=== PATIENT | male | born 1985 | race Caucasian/White ===

== ENCOUNTER → 2020-03-28 09:49 | Outpatient (CLI) | payer OTHER, SELFPAY ==
--- NOTE | ~2020-03-28 | CT_ITS ---
EXAMINATION: CT sinus wo con DATE: 03/28/2020 10:06 INDICATION: Acute recurrent pansinusitis TECHNIQUE: Computed tomography (CT) of the paranasal sinuses was performed without intravenous contra st. The dose-length product (DLP) was 278.24 mGy-cm. Iterative reconstruction was used. COMPARISON: None FINDINGS: There is normal development and pneumatization of the paranasal sinuses. There is trace muc osal thickening in the inferior aspects of the maxillary sinuses. The frontal, sphenoid, and ethmoid sinuses are clear. The bilateral ostiomeatal complexes are patent. Visualized soft tissues are unrema rkable. IMPRESSION: 1. Trace maxillary sinus disease. Reviewed, dictated and finalized at location A.
== END ==
PROVIDERS: Visit Provider Otolaryngology
DX: J01.41 Acute recurrent pansinusitis (principal)
CPT/HCPCS: 70486

== ENCOUNTER → 2021-07-10 07:54 | Outpatient (CLI) | payer OTHER, SELFPAY ==
--- NOTE | ~2021-07-10 | US_ITS ---
US abdomen limited INDICATION: Elevated bilirubin. PROCEDURE: Realtime right upper abdominal ultrasound. COMPARISON: No prior studies for comparison. FINDINGS: The pancreas is normal without focal mass or pancreatic ductal dilation. In the liver ther e is an ill-defined area of increased echogenicity with shadowing, not well defined. There is normal directional flow in the portal vein. Gallbladder is surgically absent. Common bile duct measures 3 mm. No sonographic Abdalla's sign. IMPRESSION: 1: Within the liver there is an ill-defined area of increased echogenicity with shadowing, not well d efined. Recommend correlation with contrast-enhanced CT abdomen for further evaluation and to exclude underlying mass. Reviewed, dictated and finalized at location B. E SPECIALIST IMPRESSION: 1: Within the liver there is an ill-defined area of increased echogenicity with shadowing, not well defined. Recommend correlation with contrast-enhanced CT a bdomen for further evaluation and to exclude underlying mass.
== END ==
PROVIDERS: PCP Emergency Medicine; Visit Provider Nurse Practitioner Family
DX: E80.6 Other disorders of bilirubin metabolism (principal)
CPT/HCPCS: 76705

== ENCOUNTER 2021-07-31 07:10 | Outpatient (CLI) | payer OTHER, SELFPAY ==
--- NOTE | ~2021-07-31 | CT_ITS ---
EXAMINATION: CT abdomen pelvis wo/w con DATE: 07/31/2021 07:54 INDICATION: There is increased echogenicity with shadowing within the liver on 07/10/2021 Limited abdominal ultras ound examination TECHNIQUE: Computed tomography (CT) of the abdomen and pelvis was performed without and subsequently with immediate and delayed postcontrast images after intravenous injection of 100 cc Omnipaque 350 in travenous contrast material. Automated exposure control and iterative reconstruction technique were e mployed. Exam dose: 719.52 mGy-cm total exam DLP. COMPARISON: None. FINDINGS: The lung bases are clear. Normal heart size. No pericardial or pleural effusion. Very small sliding hiatal hernia. There is an irregular heterogeneous lesion within the medial segment of the left hepatic lobe, measur ing up to approximately 4 x 6 cm dimension, with evidence of internal vascularity on the postcontrast image. There are some lower attenuation areas which may indicate some necrosis. Differential diagnos is includes unlikely focal nodular hyperplasia and hepatic adenoma, both of these are more common in females, especially hepatic adenoma, but observed rarely in men particularly related to androgenic st eroids; additional considerations include hepatocellular carcinoma, particularly fibrolamellar hepato cellular carcinoma, solitary hepatic metastasis, in addition to hemangioendothelioma sarcoma and prim marilynn hepatic lymphoma. The lesion does not demonstrate the peripheral interrupted puddling of contrast material expected with hepatic hemangioma. CT-guided percutaneous needle biopsy is recommended. No other hepatic space-occupying mass lesion is evident. No bile duct dilatation. Status post cholecystectomy. Normal splenic size. No pancreatic mass lesion, calcification or ductal dilatation. Normal morphology of the adrenal glands. No renal mass lesion is evident. There is persistent lobation versus scarring of the kidneys, m ore prominent on the left. No renal space-occupying mass lesion or urinary tract calculus or hydroure teronephrosis is detected. Mild prostate enlargement. There is moderate diffuse thickening of the urinary bladder wall. Normal appendix. There is suggestion of an approximately 3.2 cm mass within the cecum, raising concern for possible ma lignant cecal carcinoma. No bowel obstruction or intraperitoneal free air is evident. There is normal caliber of the abdominal aorta. No intraperitoneal or retroperitoneal or pelvic mass lesion or adenopathy or ascites is noted otherwise. IMPRESSION: 3.1 cm cecal mass is suggested, raising suspicion of malignant cecal carcinoma 4 x 6 cm irregular hepatic mass with internal vascularity, most suspicious for hepatic metastasis; le ss likely considerations in the differential diagnosis for the liver mass are given above Consider colonoscopy and CT-guided periappendiceal biopsy of the medial segment left hepatic mass Dr. Casarez telephoned the report on 07/31/2021 at 1126 hours to Medical Assistants' voicemail at [phone]. Reviewed, dictated and finalized at Location A. Reviewed, dictated and finalized at location B. GETTER IMPRESSION: 3.1 cm cecal mass is suggested, raising suspicion of malignant cec al carcinoma 4 x 6 cm irregular hepatic mass with internal vascularity, most suspicious for hepatic metastasis; less likely considerations in the differential diagnosis fo r the liver mass are given above Consider colonoscopy and CT-guided periappendiceal biopsy of the medial segment left hepatic mass Dr. Casarez telephoned the report on 07/31/2021 at 1126 hours to Sprayer Operator s' voicemail at [phone].
== END 2021-07-31 07:11 | disposition home or self-care (01) ==
LOC: ANHIMG 07:11
PROVIDERS: PCP Emergency Medicine; Visit Provider Nurse Practitioner Family
DX: E80.6 Other disorders of bilirubin metabolism (principal); R93.89 Abnormal findings on diagnostic imaging of other specified body structures
CPT/HCPCS: 74178; Q9967

== ENCOUNTER 2021-08-15 02:23 | Day surgery (SDC) | payer OTHER, SELFPAY ==
[2021-07-28 15:13] VITALS: BMI 25.1
--- NOTE | 2021-08-14 14:45 | WPDANESEPPF ---
Anes - Initial Pre Proc Eval Procedure: Operation Date: 08/15/21 09:45 Proposed Procedures p Colonoscopy - Marquise Patel MD Date/Time: 08/14/21 14:45 Surgeon: Marquise Patel MD Pre Op Diagnosis: colon mass, abnormal CAT scan Patient Data Age: 35 Gender: M Height: 1.75 m Weight: 77.27 kg Allergies Allergy/AdvReac Type Severity Reaction Status Date / Time No Known Allergies Allergy Verified 08/15/21 08:51 Home Medications Medication Instructions Recorded Confirmed Type citalopram 40 mg tablet 40 mg PO DAILY 06/12/21 08/15/21 History rosuvastatin 10 mg tablet 10 mg PO DAILY 06/12/21 08/15/21 History Patient hx anesthesia problems: none Family hx anesthesia problems: none Results Review: All pre-operative results and documents have been reviewed as part of the pre-operative evaluation. [facility] Past Medical History Medical History (Updated 08/14/21 @ 14:45 by Shon Mac DO) Anxiety HLD (hyperlipidemia) Hyperbilirubinemia IBS (irritable bowel syndrome) Liver mass Surgical History Surgical History History of cholecystectomy Social History Social History Smoking status: Never smoker Second hand tobacco smoke exposure: No Alcohol intake: never Substance use: never Living arrangements: with family Gender identity (if verbalized by the patient): Male Spiritual care concerns: No Agree to blood products: Yes Anes - Eval Final PreProcedure Day of Procedure 08/14/21 14:45 Patient weight: overweight Heart: regular rate and rhythm Lungs: clear to auscultation and normal air movement Airway: Mallampati scale class II Neurological: alert and oriented Last oral intake: >/= 8 hours ASA classification: II Emergent: no Anesthetic plan: proceed Anesthesia type and monitoring: general GIVS and standard monitoring Results Review: All pre-operative results and documents have been reviewed as part of the pre-operative evaluation. Informed Consent: The patient's anesthetic plan and its attendant risks and benefits were discussed with the patient/family/POA. Questions were solicited and answers provided to the satisfaction of the patient/family/POA.
[2021-08-15 08:53] VITALS: BP 113/63; PULSE 69; RESP 18; TEMP 36.1; O2SAT 99; BMI 25.3
[2021-08-15] MEDS: LACTATED RINGERS 1,000 ML 150 ML IV CONT (08:55)
--- NOTE | 2021-08-15 09:21 | WPDHPUPDATE1 ---
History and Physical Update Update Date/Time: 08/15/21 09:21 History and Physical has been reviewed, including an updated exam of the patient. There are NO changes in the patient's condition. Risks, benefits, and alternatives have been discussed and questions answered. Patient agrees to proceed with procedure.
[2021-08-15 09:42] VITALS: BP 106/85; PULSE 63; RESP 13; O2SAT 98
[2021-08-15 09:52] VITALS: BP 107/77; PULSE 62; RESP 17; O2SAT 100
[2021-08-15 10:02] VITALS: BP 113/79; PULSE 63; RESP 19; O2SAT 100
== END 2021-08-15 10:10 | disposition home or self-care (01) ==
PROVIDERS: PCP Emergency Medicine; Visit Provider Internal Medicine Gastroenterology
PROC: 0DJD8ZZ Inspection of Lower Intestinal Tract, Via Natural or Artificial Opening Endoscopic (ICD-10-PCS; CPT 45378; principal; 2021-08-15 09:45)
DX: D12.4 Benign neoplasm of descending colon (principal); E78.5 Hyperlipidemia, unspecified; E80.6 Other disorders of bilirubin metabolism; Z90.49 Acquired absence of other specified parts of digestive tract; E78.00 Pure hypercholesterolemia, unspecified; K58.9 Irritable bowel syndrome, unspecified; F41.9 Anxiety disorder, unspecified; E80.4 Gilbert syndrome; R16.0 Hepatomegaly, not elsewhere classified
CPT/HCPCS: 45385; 88305; J2704; J7120

== ENCOUNTER 2021-08-29 04:00 | Outpatient (CLI) | payer OTHER, SELFPAY ==
[2021-08-27 09:53] VITALS: BMI 25.1
--- NOTE | 2021-08-27 10:04 | PC.NURSE ---
Report to the Outpatient Waiting Room, entrance under the green pavilion located off [facility], at time 0900 on date 08/29/21. OR Time: 1100. - You will be asked a series of questions to screen for COVID 19 for your protection. - A mask is required within the hospital. - No visitors are allowed at this time. Patient visitors will be guided where to wait when not with patient. Preoperative COVID Testing Requirements: No COVID Test needed if: (proof is required; if not received patient will have Rapid Test prior to entry) - Patient has received COVID Vaccine at least 14 days prior to procedure date or - Patient has positive COVID test result within last 90 days of surgery date. COVID Test needed if above criteria is not met - No food/DRINK FOR 6 HOURS PRIOR TO PROCEDURE Take the following medications with a SIP of water the morning of surgery: NONE Medications to discontinue per physician: N/A Date to take last dose: N/A Please no make-up, nail djiboutian, hairspray, perfume, deodorant, or body powder the day of surgery. No jewelry (including any body piercings) or valuables the day of surgery, leave them at home. Please take a shower or bath the night before, or the morning of, surgery with an antibacterial soap. Wear comfortable, loose fitting clothing. - Jewelry must be removed prior to entering the operating room. Rings and piercings that are not removed may be cut off. - The hospital will not accept responsibility for valuables. - Please leave all valuables, including medications, at home the day of surgery. If you are going home after surgery, a licensed shuttle driver must drive you home. - NO public transportation without another adult. - We recommend that an adult stay with you for 24 hours following discharge. - We also recommend that you do not drive, make important decision, drink alcoholic beverages, or take any drugs that were not prescribed by your health care provider for at least 24 hours after your discharge time. Follow any additional instructions given to you from your surgeon. Telephone instructions given to JUNG BOTELLO and asked if any additional questions and then verbalized understanding. Patient advised to call surgeon office or pre surgery nurse liaison [phone] if any additional questions.
[2021-08-29] VITALS (9 sets, daily range): BP systolic 106–121; BP diastolic 67–78; PULSE 56–64; RESP 18–20; TEMP 36.6; O2SAT 98
--- NOTE | ~2021-08-29 | CT_ITS ---
EXAMINATION: CT biopsy abdomen percutaneous DATE: 08/29/2021 12:07 INDICATION: 4 x 6 cm irregular hepatic mass TECHNIQUE: The procedure including the risks and benefits was discussed with the patient. Risks discu ssed included bleeding and infection. The patient understood the risks and agreed to proceed. The sk in overlying the liver was prepped and draped in usual sterile fashion. Anesthetic was administered with 1% lidocaine subcutaneously. A 16 gauge outer needle was advanced under CT guidance to the lesi on of interest. An 18 gauge core biopsy needle was then advanced into the lesion. 3 core biopsy speci mens were obtained. The outer needle was removed and the entry site was cleaned and dressed. There w ere no immediate complications. The mAs was manually decreased to limit radiation exposure. The dose- length product was 137.87 mGy-cm. FINDINGS: CT images demonstrate the outer needle tip within the low attenuation mass in segment IVb o f the liver. IMPRESSION: 1. Successful CT-guided biopsy of an approximately 6 x 3 cm lower attenuation region of concern at se gment IVb of the liver. Reviewed, dictated and finalized at location A. R GENERATION EQUIPMENT REPAIRER IMPRESSION: 1. Successful CT-guided biopsy of an approximately 6 x 3 cm lower attenuation r egion of concern at segment IVb of the liver.
[2021-08-29 10:08] LABS: Mean Platelet Volume 9.5 fl (7.4-10.4); Platelet Count Result 198 k/mm3 (150-375)
[2021-08-29 10:14] LABS: INR 0.9; Prothrombin Time 12.5 Seconds (11.1-14.7)
== END 2021-08-29 15:26 | disposition home or self-care (01) ==
PROVIDERS: PCP Emergency Medicine; Visit Provider Radiology Diagnostic Radiology
PROC: BW20ZZZ Computerized Tomography (CT Scan) of Abdomen (ICD-10-PCS; CPT 77012; principal; 2021-08-29 11:00)
DX: R16.0 Hepatomegaly, not elsewhere classified (principal)
CPT/HCPCS: 36415; 49180; 77012; 85049; 85610; 88307; 88312; 88313; 88342

== ENCOUNTER 2022-02-27 10:04 | Outpatient (CLI) | payer OTHER, SELFPAY ==
[2022-02-27 19:08] LABS: Basophils Percent Auto 0.4 % (0.2-1.2); Eosinophils Absolute Auto 0.2 K/mm3 (0-0.3); Eosinophils Percent Auto 4.1 % (0-4.4); Hematocrit 40.9 % (42.0-52.0); Hemoglobin 14.3 g/dL (14.0-18.0); Immature Granulocyte Absolute 0.02 K/mm3 (0.00-0.031); Immature Granulocyte Percent A 0.4 % (0-0.5); Lymphocytes Percent Auto 27.5 % (18.3-44.2); Mean Corpuscular Hemoglobin 29.1 pg (26-34); Mean Corpuscular Volume 83.3 fl (80-100); Mean Platelet Volume 10.1 fl (7.4-10.4); Monocytes Absolute Auto 0.3 K/mm3 (0.1-0.6); Monocytes Percent Auto 6.1 % (2.6-8.5); Neutrophils Absolute Auto 3.1 K/mm3 (1.3-6.7); Neutrophils Percent Auto 61.5 % (45.5-73.1); Platelet Count Result 215 k/mm3 (150-375); Red Blood Count 4.91 M/mm3 (4.6-6.20); Red Cell Distribution Width 12.1 % (11.5-14.5); White Blood Count 5.1 K/mm3 (4.5-10.0)
[2022-02-27 20:41] LABS: Alanine Aminotransferase 45 U/L (6-50); Albumin Level 4.8 g/dL (3.5-5.1); Alkaline Phosphatase 82 U/L (38-126); Anion Gap 6 mmol/L (8-16); Aspartate Amino Transferase 52 U/L (17-59); Bilirubin,Total 2.7 mg/dL (0.2-1.3); Blood Urea Nitrogen 13 mg/dL (9-20); Carbon Dioxide 27 mmol/L (22-30); Chloride 107 mmol/L (98-107); Cholesterol 204 mg/dL (0-200); Estimated Glomerular Filt Rate > 60; Glucose 75 mg/dL (65-110); HDL Direct 48 mg/dL; Sodium 140 mmol/L (137-145); Triglycerides 225 mg/dL (<150); Uric Acid 6.1 mg/dL (3.5-8.5)
[2022-02-27 20:52] LABS: LDL Cholesterol Direct 63 mg/dL
[2022-02-27 21:36] LABS: Vitamin D 25 Hydroxy 32.7 ng/mL
[2022-02-27 21:50] LABS: Thyroid Stimulating Hormone Reflex 0.534 uIU/mL (0.465-4.68)
== END 2022-02-27 10:05 | disposition home or self-care (01) ==
LOC: ANHGOSHLAB 10:07
PROVIDERS: PCP Nurse Practitioner; Visit Provider Nurse Practitioner
DX: E78.5 Hyperlipidemia, unspecified (principal); E55.9 Vitamin D deficiency, unspecified; R53.83 Other fatigue; M79.674 Pain in right toe(s)
CPT/HCPCS: 36415; 80053; 80061; 82306; 84443; 84550; 85025

== ENCOUNTER → 2022-04-03 09:25 | Outpatient (CLI) | payer OTHER, SELFPAY ==
--- NOTE | ~2022-04-03 | XR_ITS ---
EXAMINATION: XR foot RT min 3V DATE: 04/03/2022 09:36 INDICATION: Right foot pain TECHNIQUE: Dorsoplantar, lateral, and 2 oblique views of the right foot were obtained. COMPARISON: None. FINDINGS: There is no fracture, dislocation, or subluxation. The bones, soft tissues, and joint space s are normal. IMPRESSION: 1. No acute osseous abnormality. Reviewed, dictated and finalized at location B.
== END ==
PROVIDERS: PCP Nurse Practitioner; Visit Provider Nurse Practitioner
DX: M79.671 Pain in right foot (principal)
CPT/HCPCS: 73630

== ENCOUNTER 2022-05-07 10:53 | Outpatient (CLI) | payer OTHER, SELFPAY ==
[2022-05-07 12:11] LABS: Alanine Aminotransferase 53 U/L (6-50); Aspartate Amino Transferase 46 U/L (17-59)
== END 2022-05-07 10:54 | disposition home or self-care (01) ==
LOC: ANHLAB 10:55
PROVIDERS: PCP Nurse Practitioner; Visit Provider Podiatrist Foot & Ankle Surgery
DX: B35.1 Tinea unguium (principal)
CPT/HCPCS: 36415; 84450; 84460

== ENCOUNTER → 2022-06-19 09:01 | Outpatient (CLI) | payer OTHER, SELFPAY ==
--- NOTE | ~2022-06-19 | XR_ITS ---
EXAMINATION: XR chest 2V DATE: 06/19/2022 09:23 INDICATION: Shortness of breath TECHNIQUE: PA and lateral views of the chest are obtained. COMPARISON: None available FINDINGS: The lungs are free of acute opacities. No pleural effusion or pneumothorax. The cardiomedia stinal silhouette is normal. The visualized bones and soft tissues are unremarkable. Surgical clips i n the right upper quadrant are likely from prior cholecystectomy. IMPRESSION: 1. No acute cardiopulmonary abnormality. Reviewed, dictated and finalized at location B. RANCE ADMINISTRATOR
== END ==
PROVIDERS: PCP Nurse Practitioner Family; Visit Provider Nurse Practitioner Family
DX: R06.09 Other forms of dyspnea (principal)
CPT/HCPCS: 71046

== ENCOUNTER 2022-06-19 09:23 | Outpatient (CLI) | payer OTHER, SELFPAY | END 2022-06-19 09:24 | disposition home or self-care (01) | PROVIDERS: PCP Nurse Practitioner Family; Visit Provider Nurse Practitioner Family | DX: G25.81 Restless legs syndrome (principal); R53.83 Other fatigue | CPT/HCPCS: 36415; 82607; 82728 ==

== ENCOUNTER 2022-06-26 12:54 | Outpatient (CLI) | payer OTHER, SELFPAY ==
--- NOTE | 2022-06-26 16:14 | WPDPFTINT ---
PFT Procedure Performed PFT Procedure Performed Spirometry with Pre/Post Bronchodilator Plethysmography (Lung Vol) Diffusing Cap (DLCO) Flow Vol Loop PFT Interpretation This is a pulmonary function test with pre and post-bronchodilator spirometry, plethysmography and diffusing capacity. The test was performed and results interpreted in accordance with the 2019 and 2005 ATS/ERS Task Force guidelines respectively using the Global Lung Function Initiative-2012 reference equations. Patient demonstrated good effort and cooperation. Reproducibility criteria were met. The quality of the pre bronchodilator spirometry maneuver was Grade A and post bronchodilator spirometry maneuver was Grade A. Findings: Spirometry: The contour the inspiratory and expiratory flow tracing are normal. The pre bronchodilator FVC is 4.62 L, 90% predicted. The pre bronchodilator FEV1 is 3.51 L, 84% predicted. The pre bronchodilator FEV1: FVC ratio 76%. The post bronchodilator FVC is 4.66 L, representing 1% increase. The post bronchodilator FEV1 is 3.68 L, representing a 5% increase. The post bronchodilator FEV1: FVC ratio 79%. Plethysmography: The total lung capacity is 5.90 L, 88% predicted. Functional residual capacity is 2.58 L, 78% predicted. The residual volume is 1.19 L, 70% predicted. Diffusing capacity: The diffusing capacity adjusted for alveolar volume is 27.3, 81% predicted. The diffusing capacity adjusted for alveolar volume is 5.25, 104% predicted. Impression: The spirometry is normal without evidence of an obstructive abnormality. There is no significant improvement after inhaling a single dose of albuterol. The lung volumes are normal. The diffusing capacity is normal. There are no prior studies for comparison
== END 2022-06-26 12:55 | disposition home or self-care (01) ==
PROVIDERS: PCP Family Medicine; Visit Provider Nurse Practitioner Family
DX: R06.09 Other forms of dyspnea (principal)
CPT/HCPCS: 94060; 94726; 94729

== ENCOUNTER 2022-08-27 09:26 | Outpatient (CLI) | payer OTHER, SELFPAY ==
[2022-08-27 10:11] LABS: Alanine Aminotransferase 48 U/L (6-50); Aspartate Amino Transferase 33 U/L (17-59)
== END 2022-08-27 09:27 | disposition home or self-care (01) ==
LOC: ANHLAB 09:28
PROVIDERS: PCP Family Medicine; Visit Provider Podiatrist Foot & Ankle Surgery
DX: B35.1 Tinea unguium (principal)
CPT/HCPCS: 36415; 84450; 84460

== ENCOUNTER 2022-11-19 09:41 | Outpatient (CLI) | payer OTHER, SELFPAY ==
[2022-11-19 10:53] LABS: Basophils Percent Auto 0.6 % (0.2-1.2); Eosinophils Absolute Auto 0.3 K/mm3 (0-0.3); Eosinophils Percent Auto 4.4 % (0-4.4); Hematocrit 43.3 % (42.0-52.0); Hemoglobin 15.2 g/dL (14.0-18.0); Immature Granulocyte Absolute 0.01 K/mm3 (0.00-0.031); Immature Granulocyte Percent A 0.2 % (0-0.5); Lymphocytes Absolute Auto 1.55 K/mm3 (0.9-3.2); Lymphocytes Percent Auto 24.1 % (18.3-44.2); Mean Corpuscular HGB Conc 35.1 g/dl (32-36); Mean Corpuscular Hemoglobin 29.6 pg (26-34); Mean Corpuscular Volume 84.2 fl (80-100); Mean Platelet Volume 9.5 fl (7.4-10.4); Monocytes Absolute Auto 0.4 K/mm3 (0.1-0.6); Monocytes Percent Auto 5.8 % (2.6-8.5); Neutrophils Absolute Auto 4.2 K/mm3 (1.3-6.7); Neutrophils Percent Auto 64.9 % (45.5-73.1); Platelet Count Result 234 k/mm3 (150-375); Red Blood Count 5.14 M/mm3 (4.6-6.20); White Blood Count 6.4 K/mm3 (4.5-10.0)
[2022-11-19 11:12] LABS: Alanine Aminotransferase 58 U/L (6-50); Albumin Level 4.9 g/dL (3.5-5.1); Alkaline Phosphatase 76 U/L (38-126); Anion Gap 11 mmol/L (8-16); Aspartate Amino Transferase 40 U/L (17-59); Bilirubin,Total 1.8 mg/dL (0.2-1.3); Blood Urea Nitrogen 11 mg/dL (9-20); Calcium 9.1 mg/dL (8.4-10.2); Carbon Dioxide 23 mmol/L (22-30); Chloride 104 mmol/L (98-107); Cholesterol 166 mg/dL (0-200); Estimated Glomerular Filt Rate > 60; Glucose 87 mg/dL (65-110); HDL Direct 53 mg/dL; Potassium 4.4 mmol/L (3.4-5.0); Sodium 138 mmol/L (137-145); Triglycerides 312 mg/dL (<150)
[2022-11-19 11:23] LABS: LDL Cholesterol Direct 48 mg/dL
== END 2022-11-19 09:42 | disposition home or self-care (01) ==
PROVIDERS: PCP Family Medicine; Referring Provider Podiatrist Foot & Ankle Surgery; Visit Provider Nurse Practitioner
DX: E78.5 Hyperlipidemia, unspecified (principal); B35.1 Tinea unguium
CPT/HCPCS: 36415; 80053; 80061; 85025

== ENCOUNTER 2023-04-22 09:09 | Outpatient (CLI) | payer OTHER, SELFPAY ==
[2023-04-22 11:37] LABS: Basophils Percent Auto 0.4 % (0.2-1.2); Eosinophils Absolute Auto 0.3 K/mm3 (0-0.3); Eosinophils Percent Auto 5.4 % (0-4.4); Hematocrit 43.1 % (42.0-52.0); Hemoglobin 14.5 g/dL (14.0-18.0); Immature Granulocyte Absolute 0.03 K/mm3 (0.00-0.031); Immature Granulocyte Percent A 0.5 % (0-0.5); Lymphocytes Percent Auto 32.6 % (18.3-44.2); Mean Corpuscular HGB Conc 33.6 g/dl (32-36); Mean Corpuscular Hemoglobin 28.8 pg (26-34); Mean Corpuscular Volume 85.7 fl (80-100); Mean Platelet Volume 10.1 fl (7.4-10.4); Monocytes Absolute Auto 0.4 K/mm3 (0.1-0.6); Monocytes Percent Auto 6.5 % (2.6-8.5); Neutrophils Percent Auto 54.6 % (45.5-73.1); Platelet Count Result 215 k/mm3 (150-375); Red Blood Count 5.03 M/mm3 (4.6-6.20); Red Cell Distribution Width 12.5 % (11.5-14.5); White Blood Count 5.5 K/mm3 (4.5-10.0)
[2023-04-22 12:58] LABS: Alanine Aminotransferase 45 U/L (6-50); Albumin Level 4.7 g/dL (3.5-5.1); Alkaline Phosphatase 84 U/L (38-126); Anion Gap 7 mmol/L (8-16); Aspartate Amino Transferase 51 U/L (17-59); Bilirubin,Total 2.2 mg/dL (0.2-1.3); Blood Urea Nitrogen 14 mg/dL (9-20); Carbon Dioxide 28 mmol/L (22-30); Chloride 103 mmol/L (98-107); Cholesterol 198 mg/dL (0-200); Estimated Glomerular Filt Rate > 60; Glucose 88 mg/dL (65-110); HDL Direct 45 mg/dL; Potassium 4.3 mmol/L (3.4-5.0); Sodium 138 mmol/L (137-145); Triglycerides 370 mg/dL (<150)
[2023-04-22 13:09] LABS: LDL Cholesterol Direct 60 mg/dL
[2023-04-22 13:24] LABS: Thyroid Stimulating Hormone Reflex 0.405 uIU/mL (0.465-4.68)
[2023-04-22 14:22] LABS: Free T4 Free Thyroxine Reflex 1.06 ng/dL (0.78-2.19)
[2023-04-22 16:54] LABS: Total Triiodothyronine (T3) 1.31 NG/ML (0.97-1.69)
== END 2023-04-22 09:10 | disposition home or self-care (01) ==
PROVIDERS: PCP Family Medicine; Visit Provider Family Medicine
DX: Z00.00 Encounter for general adult medical examination without abnormal findings (principal); E78.5 Hyperlipidemia, unspecified; E53.8 Deficiency of other specified B group vitamins; F41.9 Anxiety disorder, unspecified; G43.909 Migraine, unspecified, not intractable, without status migrainosus; K58.9 Irritable bowel syndrome, unspecified; E55.9 Vitamin D deficiency, unspecified; E80.6 Other disorders of bilirubin metabolism
CPT/HCPCS: 36415; 80053; 80061; 82306; 82607; 84439; 84443; 84480; 85025